=== PATIENT | male | born 1995 | race Caucasian/White ===

== ENCOUNTER 2016-11-10 22:32 | Emergency (ER) | payer BC, OTHER ==
[~2016-11-10] VITALS: Ht 180.3 cm; Wt 139.2 kg
[2016-11-10 23:56] VITALS: BP 134/78
== END 2016-11-10 23:56 | disposition home or self-care (01) ==
LOC: ED 22:32
DX: L60.0 Ingrowing nail (principal)
CPT/HCPCS: 90715; J2001

== ENCOUNTER 2016-12-31 19:30 | Emergency (ER) | payer BC, OTHER ==
[2016-12-31 23:11] VITALS: BP 137/82
== END 2016-12-31 23:11 | disposition home or self-care (01) ==
LOC: ED 19:30
DX: L60.0 Ingrowing nail (principal); R03.0 Elevated blood-pressure reading, without diagnosis of hypertension
CPT/HCPCS: J2001

== ENCOUNTER 2017-07-19 07:52 | Emergency (ER) | payer BC, OTHER ==
[~2017-07-19] VITALS: Ht 180.3 cm; Wt 139.7 kg
[2017-07-19 07:53] VITALS: Ht 180.3 cm; Wt 139.7 kg
[2017-07-19 11:14] VITALS: BP 137/88
== END 2017-07-19 11:14 | disposition home or self-care (01) ==
LOC: ED 07:52
DX: M54.5 Low back pain (principal); M51.36 Other intervertebral disc degeneration, lumbar region; E66.01 Morbid (severe) obesity due to excess calories; Z90.89 Acquired absence of other organs; V49.9XXA Car occupant (driver) (passenger) injured in unspecified traffic accident, initial encounter; Y93.79 Activity, other specified sports and athletics; Y92.488 Other paved roadways as the place of occurrence of the external cause; Y99.8 Other external cause status

== ENCOUNTER 2018-09-21 12:36 | Emergency (ER) | payer OTHER ==
[~2018-09-21] VITALS: Ht 180.3 cm; Wt 139.7 kg
[2018-09-21 12:41] VITALS: Ht 180.3 cm; Wt 139.7 kg
[2018-09-21 14:20] LABS: BASOPHIL % 0.5 % (0-2); PLATELET COUNT 269 x10^3mcL (130-400); RED CELL DISTRIBUTION WIDTH 14.2 % (11.5-14.5)
[2018-09-21 14:40] LABS: CALCIUM 9.6 mg/dL (8.5-10.1); CARBON DIOXIDE 32.9 mmol/L (21-32); CHLORIDE SERUM 106 mmol/L (98-107); CREATININE SERUM 0.9 mg/dL (0.7-1.3); GFR1 > 60 mL/min; GLUCOSE SERUM 96 mg/dL (74-106); POTASSIUM SERUM 4.1 mmol/L (3.5-5.1); SODIUM SERUM 144 mmol/L (136-145)
[2018-09-21 14:44] LABS: ALBUMIN 3.8 g/dL (3.4-5.0); ALKALINE PHOSPHATASE 49 U/L (46-116); ALT/SGPT 63 U/L (16-63); AST/SGOT 12 U/L (15-37); BILIRUBIN TOTAL 0.5 mg/dL (0.20-1.00); LIPASE 141 IU/L (73-393); TOTAL PROTEIN, SERUM 7.6 g/dL (6.4-8.2)
[2018-09-21 15:35] VITALS: BP 141/61
== END 2018-09-21 15:36 | disposition home or self-care (01) ==
LOC: ED 12:36
PROVIDERS: Emergency Medicine
DX: K52.9 Noninfective gastroenteritis and colitis, unspecified (principal); Z90.89 Acquired absence of other organs
CPT/HCPCS: J1885; J2405; J7030

== ENCOUNTER 2018-10-07 10:51 | Emergency (ER) | payer OTHER ==
[~2018-10-07] VITALS: Ht 182.9 cm; Wt 138.8 kg
[2018-10-07 10:56] VITALS: Ht 182.9 cm; Wt 138.8 kg
[2018-10-07 11:37] LABS: microscopic required? NO
[2018-10-07 11:56] LABS: UA SPECIFIC GRAVITY 1.025 (1.005-1.035); urine erythrocyte NEGATIVE (NEGATIVE)
[2018-10-07 12:53] VITALS: BP 113/72
== END 2018-10-07 13:14 | disposition home or self-care (01) ==
LOC: ED 10:51
PROVIDERS: Emergency Medicine
DX: S39.94XA Unspecified injury of external genitals, initial encounter (principal); F17.210 Nicotine dependence, cigarettes, uncomplicated; E66.01 Morbid (severe) obesity due to excess calories; Z68.41 Body mass index [BMI] 40.0-44.9, adult; Z90.89 Acquired absence of other organs; W21.07XA Struck by softball, initial encounter; Y93.64 Activity, baseball; Y92.89 Other specified places as the place of occurrence of the external cause; Y99.8 Other external cause status
CPT/HCPCS: 99406; J1885

== ENCOUNTER 2019-03-26 17:17 | Emergency (ER) | payer OTHER ==
[~2019-03-26] VITALS: Ht 180.3 cm; Wt 132.4 kg
[2019-03-26 17:32] VITALS: Ht 180.3 cm; Wt 132.4 kg
[2019-03-26 20:49] VITALS: BP 123/75
== END 2019-03-26 20:49 | disposition home or self-care (01) ==
LOC: ED 17:17
DX: S40.012A Contusion of left shoulder, initial encounter (principal); Z90.89 Acquired absence of other organs; V49.9XXA Car occupant (driver) (passenger) injured in unspecified traffic accident, initial encounter; Y93.89 Activity, other specified; Y92.89 Other specified places as the place of occurrence of the external cause; Y99.8 Other external cause status
CPT/HCPCS: J1885